=== PATIENT | female | born 1955 | race Caucasian/White ===

== ENCOUNTER 2023-08-02 07:10 | Day surgery (SDC) | payer OTHER, BC ==
[2023-07-26 12:01] VITALS: BMI 29.7
[2023-08-02] MEDS ORDERED: PROPOFOL 80 ML ONE (07:47)
[2023-08-02 08:41] VITALS: RESP 16; TEMP 97
[2023-08-02 08:54] VITALS: BP 153/74; PULSE 75
== END 2023-08-02 08:54 | disposition home or self-care (01) ==
LOC: FASU-ENDO 07:10
PROVIDERS: ATTEND Internal Medicine Gastroenterology
PROC: 0DJD8ZZ Inspection of Lower Intestinal Tract, Via Natural or Artificial Opening Endoscopic (ICD-10-PCS; principal; 2023-08-02 08:13)
DX: Z12.11 Encounter for screening for malignant neoplasm of colon (principal); K57.30 Diverticulosis of large intestine without perforation or abscess without bleeding; Z86.010 Personal history of colon polyps
CPT/HCPCS: 82962